=== PATIENT | male | born 1940 | race Caucasian/White ===

== ENCOUNTER 2017-02-12 10:23 | Emergency (ER) | payer MEDICARE ==
[2017-02-12 10:32] VITALS: BP 127/84
--- NOTE | 2017-02-12 11:24 | UC ---
Skin Complaint HPI - HPI Summary HPI Summary: Patient presents to the with CC of bilateral pruritic erythematous plaques under the bilateral arms x 1 month. He denies other symptoms. He is not a diabetic. He notes to swimming in chlorinated pools, but denies hot tubs, deodorant or other soap changes. Denies any other changes to diet or lifestyle. He denies pain. There are no weeping lesions and he denies fevers, sweats or chills. - History of Current Complaint Chief Complaint: UCSkin Time Seen by Provider: 02/12/17 10:46 Stated Complaint: BILATERAL ARM SKIN COMPLAINT Hx Obtained From: Patient Onset/Duration: Sudden Onset Skin Exposure Onset/Duration: Minutes Ago Timing: Constant Onset Severity: Moderate Current Severity: Moderate Pain Intensity: 1 Pain Scale Used: 0-10 Numeric Location: Discrete - bilateral axilla Character: Pruritus, Redness Aggravating Factor(s): Nothing Alleviating Factor(s): Nothing Related History: Possible Reaction to: Environmental Exposure - Allergy/Home Medications Allergies/Adverse Reactions: Allergies Allergy/AdvReac Type Severity Reaction Status Date / Time No Known Allergies Allergy Verified 02/12/17 10:32 Home Medications: Home Medications oxyCODONE TAB* [Roxycodone TAB 5 mg*] 5 mg PO Q6H PRN 02/12/17 [History Confirmed 02/12/17] traMADol TAB* [Ultram*] 50 mg PO Q6HR PRN 02/12/17 [History Confirmed 02/12/17] Review of Systems Constitutional: Negative Skin: Rash Eyes: Negative Respiratory: Negative Cardiovascular: Negative Motor: Negative Neurovascular: Negative Neurological: Negative Is Patient Immunocompromised?: No All Other Systems Reviewed And Are Negative: Yes PMH/Surg Hx/FS Hx/Imm Hx Previously Healthy: Yes - Surgical History Surgical History: Yes Surgery Procedure, Year, and Place: gallbladder removal. femur sx. back sx - Social History Occupation: Unemployed, Retired Lives: With Family Alcohol Use: None Substance Use Type: None Smoking Status (MU): Former Smoker Type: Cigarettes When Did the Patient Quit Smoking/Using Tobacco: 30 years ago - Immunization History Most Recent Influenza Vaccination: 01/2017 Physical Exam Triage Information Reviewed: Yes Appearance: Well-Appearing, Well-Nourished Vital Signs: Initial Vital Signs Temp 98 F 02/12/17 10:27 Pulse 80 02/12/17 10:27 Resp 18 02/12/17 10:27 BP 127/84 02/12/17 10:27 Pulse Ox 96 02/12/17 10:27 Vital Signs Reviewed: Yes Eye Exam: Normal Eyes: Positive: Conjunctiva Clear Neck exam: Normal Neck: Positive: Supple, No Lymphadenopathy Respiratory Exam: Normal Respiratory: Positive: Chest non-tender Cardiovascular Exam: Normal Cardiovascular: Positive: RRR Neurological Exam: Normal Neurological: Positive: Alert Psychological: Positive: Normal Response To Family Skin: Positive: rashes Course/Dx - Course Course Of Treatment: Patient evaluated for bilateral pruritic erythematous plaques under the bilateral arms x 1 month. He denies other symptoms. He is not a diabetic. He notes to swimming in chlorinated pools - which may contribute to a yeast infection if not patting under the arms dry upon getting out of the pool. Chowdhury lamp used to assess for erythrasma. No coral highlights were noted. He is given Nystatin cream for under the bilateral arms twice daily. He is encouraged to return in 7-10 days if symptoms do not improve and will try a new medication at that time. He is Ok with this plan and is OK for discharge. He is otherwise feeling well and has no other concerns. - Differential Diagnoses - Skin Complaint Differential Diagnoses: Allergic Reaction, Other - intertrigo, yeast, fungal, dermatophytosis, erythrasma, bacterial overgrowth - Diagnoses Provider Diagnoses: Lyssa Intertrigo Discharge - Discharge Plan Condition: Stable Disposition: HOME Prescriptions: Nystatin CREAM* [Nystatin Cream*] 1 applic TOPICAL BID #1 tube Patient Education Materials: Skin Yeast Infection (ED) Referrals: Andrew Segura MD [Primary Care Provider] - Additional Instructions: Please return in 1 week if symptoms have not improved
== END 2017-02-12 11:19 | disposition home or self-care (01) ==
LOC: UCCORT 10:23
DX: B37.2 Candidiasis of skin and nail (principal)
CPT/HCPCS: 99212; G0463

== ENCOUNTER 2017-02-13 14:28 | Emergency (ER) | payer MEDICARE ==
[2017-02-13 14:55] VITALS: BP 122/72
--- NOTE | 2017-02-13 15:09 | UC ---
Skin Complaint HPI - HPI Summary HPI Summary: 76 year old male Here w/ itchy rash on bilat axilla for last couple weeks. Pt states he was seen here yesterday for rash and dx w/ fungal infection- rx nystatin cream. Tried nystatin cream to bilat axilla yesterday night- states itch/redness got worse 3 hrs after application. Did not apply any cream today. He did apply vaseline and it did help. He would like to try a different medication. [ End ] - History of Current Complaint Chief Complaint: UCSkin Time Seen by Provider: 02/13/17 14:49 Stated Complaint: RE-CK ARMPITS Hx Obtained From: Patient Onset/Duration: Gradual Onset Timing: Constant Onset Severity: Mild Aggravating Factor(s): Nothing Alleviating Factor(s): Nothing - Allergy/Home Medications Allergies/Adverse Reactions: Allergies Allergy/AdvReac Type Severity Reaction Status Date / Time No Known Allergies Allergy Verified 02/13/17 14:45 Review of Systems Skin: Rash All Other Systems Reviewed And Are Negative: Yes PMH/Surg Hx/FS Hx/Imm Hx Previously Healthy: Yes - Surgical History Surgical History: Yes Surgery Procedure, Year, and Place: gallbladder removal. femur sx. back sx - Family History Known Family History: Negative: Cardiac Disease - Social History Occupation: Retired Alcohol Use: None Substance Use Type: None Smoking Status (MU): Former Smoker Type: Cigarettes When Did the Patient Quit Smoking/Using Tobacco: 30 years ago - Immunization History Most Recent Influenza Vaccination: 01/2017 Physical Exam Triage Information Reviewed: Yes Appearance: Well-Appearing, No Pain Distress, Well-Nourished Vital Signs: Initial Vital Signs Temp 97.9 F 02/13/17 14:46 Pulse 82 02/13/17 14:46 Resp 18 02/13/17 14:46 BP 122/72 02/13/17 14:46 Pulse Ox 95 02/13/17 14:46 Vital Signs Reviewed: Yes Eye Exam: Normal ENT Exam: Normal Dental Exam: Normal Neck exam: Normal Neck: Positive: 1 Respiratory Exam: Normal Cardiovascular Exam: Normal Musculoskeletal Exam: Normal Neurological Exam: Normal Psychological Exam: Normal Skin Exam: Normal Skin: Positive: rashes - erythematous macular plaque b/l axilla. no break in skin. no fluctuance or discharge. Course/Dx - Course Course Of Treatment: advised to try to reseume the nystatin if he can today or tomorrow. start oral diflucan to help with the eradication as well. RTO if any concerns - Diagnoses Provider Diagnoses: intertrigo kika bilateral axilla Discharge - Discharge Plan Condition: Good Disposition: HOME Prescriptions: Fluconazole [Diflucan 150 MG (NF)] 150 mg PO DAILY #3 tab Patient Education Materials: Skin Yeast Infection (ED) Referrals: Andrew Segura MD [Primary Care Provider] - 4 Days
== END 2017-02-13 15:18 | disposition home or self-care (01) ==
LOC: UCCORT 14:28
DX: L30.4 Erythema intertrigo (principal); B37.2 Candidiasis of skin and nail; Z87.891 Personal history of nicotine dependence
CPT/HCPCS: 99212; G0463

== ENCOUNTER 2017-05-20 14:29 | Emergency (ER) | payer MEDICARE ==
[2017-05-20 15:20] VITALS: BP 123/74
--- NOTE | 2017-05-20 15:22 | UC ---
Skin Complaint HPI - HPI Summary HPI Summary: rash left forearm x 1 week very itchy , no known new contacts , no new soap or detergent - History of Current Complaint Time Seen by Provider: 05/20/17 15:04 Stated Complaint: SKIN COMPLAINT Hx Obtained From: Patient Onset/Duration: Gradual Onset, Lasting Days - 7, Still Present Timing: Constant Onset Severity: Moderate Current Severity: Moderate Location: Discrete - left forearm Character: Redness Aggravating Factor(s): Nothing Alleviating Factor(s): Nothing Associated Signs & Symptoms: Positive: Negative - Allergy/Home Medications Allergies/Adverse Reactions: Allergies Allergy/AdvReac Type Severity Reaction Status Date / Time No Known Allergies Allergy Verified 03/24/17 09:18 Review of Systems Constitutional: Negative Skin: Rash Eyes: Negative ENT: Negative Respiratory: Negative Cardiovascular: Negative Is Patient Immunocompromised?: No All Other Systems Reviewed And Are Negative: Yes PMH/Surg Hx/FS Hx/Imm Hx Previously Healthy: Yes - Surgical History Surgical History: Yes Surgery Procedure, Year, and Place: gallbladder removal. femur sx. back sx - Family History Known Family History: Negative: Cardiac Disease - Social History Alcohol Use: None Substance Use Type: None Smoking Status (MU): Former Smoker Type: Cigarettes When Did the Patient Quit Smoking/Using Tobacco: 30 years ago - Immunization History Most Recent Influenza Vaccination: 01/2017 Physical Exam Triage Information Reviewed: Yes Appearance: Well-Appearing, No Pain Distress, Well-Nourished Vital Signs Reviewed: Yes Eye Exam: Normal ENT: Positive: Normal ENT inspection, Hearing grossly normal, Pharynx normal Neck exam: Normal Neck: Positive: Supple, Nontender, No Lymphadenopathy Respiratory Exam: Normal Respiratory: Positive: Chest non-tender, Lungs clear, Normal breath sounds Cardiovascular: Positive: RRR, No Murmur, Pulses Normal, Brisk Capillary Refill Abdominal Exam: Normal Neurological Exam: Normal Neurological: Positive: Alert Skin: Positive: rashes - macular rash left forearm Course/Dx - Diagnoses Provider Diagnoses: dermatitis left forearm Discharge - Discharge Plan Condition: Stable Disposition: HOME Referrals: Andrew Segura MD [Primary Care Provider] -
== END 2017-05-20 15:34 | disposition home or self-care (01) ==
LOC: UCCORT 14:29
DX: L30.9 Dermatitis, unspecified (principal)
CPT/HCPCS: 99212; G0463